=== PATIENT | male | born 1990 | race Caucasian/White ===

== ENCOUNTER → 2021-12-28 | Emergency (ER) | payer SELFPAY ==
[~2021-12-28] VITALS: Ht 182.9 cm; Wt 94.6 kg
--- NOTE | 2021-12-28 23:45 | PHYS DOC ---
Past Medical History Past Medical History: No Pertinent History Past Surgical History: No Surgical History Smoking Status: Former Smoker Alcohol Use: Occasionally Drug Use: None General Adult EDM: Chief Complaint: acute alcohol intoxication HPI: HPI: 31 yo M, no sig pmh/psh/allergies, recent RLE stitches, presents BIBEMS for alcohol intoxication. BGM 130. Vitals wnl. Per girlfriend, patient drank several beers at the music festival today. Denies other illicit drug use. No falls or trauma. Review of Systems: Review of Systems: Unable to obtain given patient's mental status Heart Score: C/O Chest Pain: No Risk Factors: Risk Factors: DM, Current or recent (<one month) smoker, HTN, HLP, family history of CAD, obesity. Risk Scores: Score 0 - 3: 2.5% MACE over next 6 weeks - Discharge Home Score 4 - 6: 20.3% MACE over next 6 weeks - Admit for Clinical Observation Score 7 - 10: 72.7% MACE over next 6 weeks - Early Invasive Strategies Physical Exam: PE: Constitutional: acutely intoxicated, Well developed, well nourished, no acute distress HENT: Normocephalic, atraumatic, bilateral external ears normal, nose normal. [] Eyes: PERRLA, EOMI, conjunctiva normal, no discharge. [] Neck: Normal range of motion, no tenderness, supple, no stridor. [] Cardiovascular:Heart rate regular rhythm, no murmur [] Lungs & Thorax: Bilateral breath sounds clear to auscultation [] Abdomen: Bowel sounds normal, soft, no tenderness, no masses, no pulsatile masses. [] Skin: Warm, dry, no erythema, no rash. [] Back: No tenderness, no CVA tenderness. [] Extremities: No tenderness, no cyanosis, no clubbing, ROM intact, no edema. [] Neurologic: awake and alert but oriented x 1, normal motor function, normal sensory function, no focal deficits noted. [] EKG: EKG: [] Radiology/Procedures: Radiology/Procedures: [] Course & Med Decision Making: Course & Med Decision Making Pertinent Labs and Imaging studies reviewed. (See chart for details) Additional Social History: PMD from non-affiliated facility. Patient Lives at home. Family History: Non-pertinent to today's complaint. Nursing Notes Reviewed Previous Medical Records requested via [facility] Web: Reviewed by me. EMERGENCY DEPARTMENT COURSE/ MEDICAL DECISION MAKING: I examined the patient, evaluated and addressed patient's chief complaint. Suspect acute alcohol intoxication with no trauma, BGM wnl, airway intact and breathing spontaneously. Sitting up in bed. Pending sobriety. The patient was placed under Observation status at 12:00 for ongoing evaluation and risk stratification of their alcohol intoxication. During their time in observation they received at least 1 of the following/interventions: Cardiopulmonary/pulse oximetry monitoring Aspiration precautions One-to-one monitoring Neuro checks Serial exams and treatments FAMILY HX: [Noncontributory]. Repeat vitals reviewed and stabilized. On re-evaluation at 04:00, patient is ANO x3, conversing appropriately, ambulating to the restroom without assistance, stable gait. DISPOSITION: THE PATIENT WAS DISCHARGED FROM ED OBSERVATION at 04:00 and was discharged with TOTAL OBSERVATION TIME of 4 hours. While in the ED, patient remained under the direct care of an Emergency Medicine Physician. DIAGNOSTIC IMPRESSION: 1. Alcohol intoxication DISPOSITION: Disposition: Discharge Home. Condition: Improved Follow-Up: PMD Prescriptions: None Return to the Emergency Department for new or worsening symptoms. Kenn Disclaimer: Kenn Disclaimer: This electronic medical record was generated, in whole or in part, using a voice recognition dictation system. Departure Departure Impression: Primary Impression: Alcohol intoxication Disposition: HOME / SELF CARE / HOMELESS Condition: STABLE MARLA ARIAS MD December 28, 2021 23:45
[2021-12-29 04:04] VITALS: BP 140/73
== END | disposition home or self-care (01) ==
LOC: ER 23:37
DX: F10.229 Alcohol dependence with intoxication, unspecified (principal); Y90.9 Presence of alcohol in blood, level not specified; Z87.891 Personal history of nicotine dependence
CPT/HCPCS: 99285-25